=== PATIENT | female | born 1970 | race Caucasian/White ===

== ENCOUNTER 2016-09-25 19:02 | Observation (INO) | payer SELFPAY ==
[2016-09-25 19:14] VITALS: PULSE 78; O2SAT 100
--- NOTE | 2016-09-25 19:53 | C.PDOC ---
History Of Present Illness 46 year old female presents to the ED with complaints of persistent diarrhea for four days described as intermittent green, yellow loose stool and abdominal pain. Patient notes a subjective fever, but denies sick contacts or vomiting. Time Seen by Provider: 09/25/16 19:37 Chief Complaint (Nursing): Abdominal Pain History Per: Patient History/Exam Limitations: no limitations Onset/Duration Of Symptoms: Days (four days ), Intermittent Episodes (of green, yellow and loose stool ), Persistent (diarrhea persistent) Current Symptoms Are (Timing): Still Present Quality Of Discomfort: "Pain" Associated Symptoms: Diarrhea. denies: Fever, Chills, Nausea, Vomiting Recent travel outside of the [place]: No Abnormal Vaginal Bleeding: No Past Medical History Reviewed: Historical Data, Nursing Documentation, Vital Signs Vital Signs: Last Vital Signs Temp 97.8 F 09/25/16 19:09 Pulse 78 09/25/16 19:09 Resp 20 09/25/16 19:09 BP 134/84 09/25/16 19:09 Pulse Ox 100 09/25/16 19:59 - Medical History PMH: Anemia, Asthma, Hypothyroidism Family History: States: No Known Family Hx - Social History Hx Alcohol Use: No Hx Substance Use: No - Immunization History Hx Tetanus Toxoid Vaccination: No Hx Influenza Vaccination: No Review Of Systems Constitutional: Positive for: Fever. Negative for: Chills, Sweats Respiratory: Negative for: Cough, Shortness of Breath Gastrointestinal: Positive for: Abdominal Pain, Diarrhea. Negative for: Nausea , Vomiting Genitourinary: Negative for: Dysuria, Hematuria Physical Exam - Physical Exam Appears: Non-toxic, No Acute Distress Skin: Warm, Dry, No Rash Head: Atraumatic Eye(s): bilateral: Normal Inspection Oral Mucosa: Moist Neck: Normal ROM, Supple Chest: Symmetrical, No Deformity Cardiovascular: Rhythm Regular Respiratory: No Rales, No Rhonchi, No Stridor, No Wheezing Gastrointestinal/Abdominal: Soft, Tenderness (tenderness to bilateral RLQ ), No Distention, No Guarding, No Rebound Extremity: Normal ROM, No Tenderness Neurological/Psych: Oriented x3 ED Course And Treatment - Laboratory Results Result Diagrams: 09/25/16 20:00 09/25/16 20:00 O2 Sat by Pulse Oximetry: 100 (room air ) Progress - Data Reviewed Data Reviewed: Lab, Old records ED OBSERVATION Discharge: Yes Date of observation admission: 09/25/16 Time of observation admission: 19:30 - Observation admission statement Patient is being placed in observation because:: DIARRHEA, ABD PAIN - Goals of Observation Goals of observation are:: SX IMPROVE, NO ACUTE ABD - Progress Note Progress Note: 09/25/16 22:46 FEELS BETTER. VSS. NO S/S ACUTE ABD Disposition Counseled Patient/Family Regarding: Studies Performed, Diagnosis, Need For Followup, Rx Given - Disposition Disposition: HOME/ ROUTINE Disposition Time: 22:47 Condition: IMPROVED - POA Present On Arrival: None - Clinical Impression Clinical Impression: Diarrhea, Abdominal cramping - Scribe Statement The provider has reviewed the documentation as recorded by the Sandraibmavis Velez All medical record entries made by the Rosalba were at my direction and personally dictated by me. I have reviewed the chart and agree that the record accurately reflects my personal performance of the history, physical exam, medical decision making, and the department course for this patient. I have also personally directed, reviewed, and agree with the discharge instructions and disposition.
[2016-09-25] MEDS ORDERED: Atropine-Diphenoxylate 0.025-2.5 mg Tab PO STA (19:54)
[2016-09-25] MEDS ORDERED: Sodium Chloride 0.9% 1,000 ML IV ONE (19:54)
[2016-09-25 20:03] LABS: BASO % 0.3 % (0.0-2.0); EOS # 0.2 K/uL (0.0-0.7); EOS % 2.6 % (0.0-4.0); LYMPH # 2.4 K/uL (1.0-4.3); LYMPH % 34.6 % (20.0-40.0); MEAN CELL VOLUME 86.3 fL (81.0-99.0); MEAN CORPUSCULAR HEMOGLOBIN 28.8 pg (27.0-31.0); MEAN CORPUSCULAR HGB CONC 33.3 g/dL (33.0-37.0); MEAN PLATELET VOLUME 9.3 fL (7.2-11.7); MONO # 0.4 K/uL (0.0-0.8); MONO % 6.3 % (0.0-10.0); RED CELL DISTRIBUTION WIDTH 14.7 % (11.5-14.5)
[2016-09-25] MEDS ORDERED: Atropine-Diphenoxylate 0.025-2.5 mg Tab ONE (20:09)
[2016-09-25 20:17] LABS: CHLORIDE 107 mmol/L (98-107); POTASSIUM 3.7 mmol/L (3.6-5.2); SODIUM 140 mmol/L (132-148)
[2016-09-25 20:20] LABS: BLOOD UREA NITROGEN 12 mg/dL (7-17); CARBON DIOXIDE 20 mmol/L (22-30); GFR AFRICAN-AMERICAN > 60; GLUCOSE,RANDOM 128 mg/dL (65-105)
[2016-09-25 20:21] LABS: CALCIUM 9.4 mg/dl (8.6-10.4)
[2016-09-25 23:17] VITALS: BP 135/74; RESP 18; TEMP 98.6
== END 2016-09-25 22:48 | disposition home or self-care (01) ==
LOC: C.ER 19:02 → C.9OBSV 19:30
PROVIDERS: ADMIT Emergency Medicine; ATTEND Emergency Medicine
DX: R19.7 Diarrhea, unspecified (principal); R10.9 Unspecified abdominal pain; J45.909 Unspecified asthma, uncomplicated; E03.9 Hypothyroidism, unspecified; D64.9 Anemia, unspecified
CPT/HCPCS: 80048; 85025; 87045; 96360; 99284; G0378; J7040